=== PATIENT | male | born 1955 | race Caucasian/White ===

== ENCOUNTER 2017-09-29 10:50 | Emergency (ER) | payer MEDICARE, OTHER ==
[2017-09-29] MEDS ORDERED: ONDANSETRON ODT 4 MG TABLET TL STA (11:13)
[2017-09-29] MEDS ORDERED: OXYMETAZOLINE NASAL SPRAY NAS STA (11:13)
[2017-09-29] MEDS ORDERED: MECLIZINE 12.5 MG TABLET PO STA (11:13)
--- NOTE | 2017-09-29 11:18 | ED Physician Documentation ---
History of Present Illness - Stated complaint Stated Complaint: DIZZY/LOSS OF HEARING IN LT EAR - Chief complaint Chief Complaint: Neuro - Additonal information Additional information: hx from pt 62 male recent dental pain where crown has fallen off now ear feels clogged and he is dizzy (vertigo, "sea legs" not ataxia) and nauseated no focal numbness or weakness no vision changes no aphasia or dysarthria Review of Systems Constitutional: denies: Fever, Chills Ears: reports: Ear pain Throat: reports: Dental pain / toothache Respiratory: denies: Cough GI: reports: Nausea, Vomiting Neurologic: reports: Other (dizzy). denies: Focal weakness, Numbness, Difficulty speaking Endocrine: denies: Easy bruising / bleeding Immunocompromised: denies: Immunocompromised PD PAST MEDICAL HISTORY - Present Medications Home Medications: Ambulatory Orders Medication Instructions Recorded Confirmed Clindamycin [Cleocin] 300 mg PO Q6H 7 Days capsule 09/29/17 Lisinopril 10 mg PO DAILY #30 tablet 09/29/17 Meclizine [Antivert] 25 mg PO Q6H PRN #20 tablet 09/29/17 Ondansetron Odt [Zofran] 4 mg TL Q6H PRN #10 tablet 09/29/17 Oxymetazoline HCl [Afrin] 2 spray NS BID PRN #1 bottle 09/29/17 - Allergies Allergies/Adverse Reactions: Allergies Allergy/AdvReac Type Severity Reaction Status Date / Time Sulfa (Sulfonamide Allergy Mild Hives Verified 09/29/17 10:59 Antibiotics) Penicillins AdvReac Severe Anaphylaxis Verified 09/29/17 10:59 PD ED PE NORMAL - Vitals Vital signs reviewed: Yes - General General: Alert and oriented X 3 - HEENT HEENT: PERRL (EOMI no sig nystagmus). No: Ears normal (dull R TM with soerous fluid) - Neck Neck: Supple, no meningeal sign, Other (right lower detal decay with some surrounding erythema but no visible abscess to drain) - Cardiac Cardiac: RRR - Respiratory Respiratory: No respiratory distress, Clear bilaterally - Derm Derm: Normal color - Neuro Neuro: Alert and oriented X 3, whip operator 2-12 intact, No motor deficit, No sensory deficit, Normal speech, Other (nl finger toe) Eye Opening: Spontaneous Motor: Obeys Commands Verbal: Oriented GCS Score: 15 Results - Vitals Vitals: Vital Signs - 24 hr 09/29/17 09/29/17 09/29/17 10:53 12:19 12:40 Temperature 36.4 C L 36.5 C Heart Rate 83 83 77 Respiratory 18 18 18 Rate Blood Pressure 198/109 H 171/130 H 168/107 H O2 Saturation 96 95 96 Oxygen O2 Source Room air PD MEDICAL DECISION MAKING - ED course ED course: hx and exam suggest periph / inner ear vertigo not ataxia / central/ cerebellar sx pt much better with meclizine walked s diff will follow up re BP dc DBP 130 so started lisinopril - Sepsis Event Vital Signs: Vital Signs - 24 hr 09/29/17 09/29/17 09/29/17 10:53 12:19 12:40 Temperature 36.4 C L 36.5 C Heart Rate 83 83 77 Respiratory 18 18 18 Rate Blood Pressure 198/109 H 171/130 H 168/107 H O2 Saturation 96 95 96 Oxygen O2 Source Room air Departure - Departure Disposition: 01 Home, Self Care Clinical Impression: Vertigo, Dental infection Condition: Good Instructions: ED Abscess Dental, ED Vertigo Unspecified, ED Hypertension New Begin Tx Prescriptions: Clindamycin [Cleocin] 300 mg PO Q6H 7 Days capsule Lisinopril 10 mg PO DAILY #30 tablet Meclizine [Antivert] 25 mg PO Q6H PRN #20 tablet PRN Reason: Dizziness Ondansetron Odt [Zofran] 4 mg TL Q6H PRN #10 tablet PRN Reason: Nausea / Vomiting Oxymetazoline HCl [Afrin] 2 spray NS BID PRN #1 bottle PRN Reason: nasal sinus ear congestion Comments: Based on your exam I think the dizziness is due to an inner ear problem and not to a brain problem or stroke Take the medications as prescribed Follow up with your PMD if not better in a few days. Return to the ER if worse or develop other neurologic symptoms such as numbness weakness trouble speaking or loss of vision And please follow up with a dentist about your teeth And your blood pressure was very very high so I have strated you on a blood pressure medication called lisinopril - please follow up with your PMD about your blood pressure
[2017-09-29] MEDS ORDERED: LISINOPRIL 5 MG TABLET PO STA (12:31)
[2017-09-29 12:40] VITALS: BP 168/107
== END 2017-09-29 12:49 | disposition home or self-care (01) ==
LOC: ED 10:50
DX: R42 Dizziness and giddiness (principal); K04.7 Periapical abscess without sinus; R03.0 Elevated blood-pressure reading, without diagnosis of hypertension
CPT/HCPCS: 99283; A9270; Q0162

== ENCOUNTER 2017-10-15 09:40 | Outpatient (CLI) | payer SELFPAY ==
--- NOTE | 2017-10-15 15:23 | XRAY Report ---
Procedure Date: 10/15/2017 Accession Number: [id number] / [id number] Procedure: XR - Chest 2 View X-Ray CPT Code: 45817 FULL RESULT: EXAM: Chest 2 View X-Ray DATE: 10/15/2017 9:50 AM CLINICAL HISTORY: COUGH COMPARISON: CT chest 04/27/2011. TECHNIQUE: 2 views. FINDINGS: Lungs/Pleura: No focal opacities evident. No pneumothorax or pleural effusion. Normal volumes. Mediastinum: Heart and mediastinal contours are unremarkable. Other: None. IMPRESSION: Normal 2-view chest radiography. RADIA
== END 2017-10-15 09:41 | disposition home or self-care (01) ==
LOC: DI 09:40
PROVIDERS: ATTEND Nurse Practitioner Family
DX: R05 Cough (principal)
CPT/HCPCS: 71046

== ENCOUNTER 2020-09-22 15:40 | Emergency (ER) | payer SELFPAY ==
--- NOTE | 2020-09-22 15:44 | ED Physician Documentation ---
PD HPI UPPER EXT INJURY - Stated complaint Stated Complaint: CUT OFF LT THUMB - History obtained from History obtained from: Patient - History of Present Illness Location: Left, Finger (thumb amputation with chop saw at 15:20. Bled brisk for few minutes. Improved with pressure.) Type of injury: Laceration (from chop saw power tool) Where injury occurred: Home, Other (patient is right hand dominant) Timing - onset: Today (just 15-20 minutes [employer]) Timing - details: Abrupt onset, Still present Worsened by: Moving, Palpating Associated symptoms: Other (amputation of thumb just proximal to IP joint.) Similar symptoms before: Has not had sx before Review of Systems Constitutional: denies: Fever, Chills Nose: denies: Rhinorrhea / runny nose, Congestion Throat: denies: Sore throat Respiratory: denies: Cough PD PAST MEDICAL HISTORY - Past Medical History Past Medical History: Yes Cardiovascular: Hypertension Respiratory: None Neuro: None Endocrine/Autoimmune: None GI: Ulcers - Past Surgical History Past Surgical History: No - Present Medications Home Medications: Ambulatory Orders Medication Instructions Recorded Confirmed lisinopriL [Lisinopril] 20 mg PO DAILY 09/22/20 09/22/20 - Allergies Allergies/Adverse Reactions: Allergies Allergy/AdvReac Type Severity Reaction Status Date / Time Sulfa (Sulfonamide Allergy Mild Hives Verified 09/22/20 15:46 Antibiotics) Penicillins AdvReac Severe Anaphylaxis Verified 09/22/20 15:46 - Living Situation Living Arrangement: reports: At home - Social History Does the pt smoke?: No Smoking Status: Former smoker Does the pt drink ETOH?: Yes Does the pt have substance abuse?: No PD ED PE NORMAL - Vitals Vital signs reviewed: Yes - General General: Alert and oriented X 3, Well developed/nourished, Other (appears in pain due to thumb. ) - Derm Derm: Normal color, Warm and dry - Extremities Extremities: Other (The left thumb shows a amputation just proximal to the IP joint. The distal segment is brought on a cool towel moistened. There is no tenderness in the hand.) - Neuro Neuro: Alert and oriented X 3 Results - Vitals Vitals: Vital Signs - 24 hr 09/22/20 15:47 Temperature 36.6 C Heart Rate 100 Respiratory 20 Rate Blood Pressure 122/97 H O2 Saturation 100 Oxygen O2 Source Room air - Labs Labs: Laboratory Tests 09/22/20 09/22/20 16:11 16:11 WBC 9.0 RBC 4.81 Hgb 15.2 Hct 45.5 MCV 94.6 H MCH 31.6 H MCHC 33.4 RDW 13.2 Plt Count 277 MPV 9.2 Neut # (Auto) 5.8 Lymph # (Auto) 2.2 Cecil # (Auto) 0.7 Eos # (Auto) 0.2 Baso # (Auto) 0.1 Absolute Nucleated RBC 0.00 Nucleated RBC % 0.0 Sodium 137 Potassium 4.0 Chloride 101 Carbon Dioxide 25 Anion Gap 11.0 BUN 23 H Creatinine 1.2 Estimated GFR (MDRD) 61 L Glucose 113 H Calcium 9.3 - Rads (name of study) left thumb Radiology: Prelim report reviewed (amputation of the thumb at distal end of proximal phalanx. ), See rad report PD MEDICAL DECISION MAKING - ED course Complexity details: re-evaluated patient (Time was spent calling initially [facility] trauma but they were not replying. [facility] was called promptly after that. The hand surgeon wanted to see pictures of the distal segment in the wound. ), considered differential (The patient has amputation of the thumb. It is cleansed gently and then placed in moist cool gauze. The thumb is anesthetized locally with bupivacaine. It is also cleansed with normal saline.), d/w patient ED course: The patient was given IV fluids pain medicine and antibiotics. He was up-to-date on tetanus already. A fair amount of time elapsed getting pictures of the wound sent to [facility] and initially were not going through by the typical fax. Subsequently the pictures finally did get to there so the hand surgeon could view them. He did feel there was salvageability of the thumb and accepted transfer of the patient. He did ask for it to be in a timely fashion so air transport was recommended. 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
[2020-09-22] MEDS ORDERED: MORPHINE 2 MG/ML CARPUJECT IVP STA ×2 (15:59→17:24)
[2020-09-22] MEDS ORDERED: KETOROLAC 30 MG/ML VIAL IVP STA (16:00)
[2020-09-22] MEDS ORDERED: ceFAZolin 1 GM in SODIUM CHLORIDE 0.9% MINIBAG 100 ML IV STA (16:00)
[2020-09-22 16:33] LABS: BASOPHILS # (AUTO) 0.1 10^3/uL (0.0-0.1); BASOPHILS % (AUTO) 0.6 %; EOSINOPHILS # (AUTO) 0.2 10^3/uL (0.0-0.7); EOSINOPHILS % (AUTO) 2.2 %; HCT - HEMATOCRIT 45.5 % (42.0-52.0); HGB - HEMOGLOBIN 15.2 g/dL (14.0-18.0); LYMPHOCYTES # (AUTO) 2.2 10^3/uL (1.5-3.5); LYMPHOCYTES % (AUTO) 24.1 %; MEAN CORPUSCULAR HEMOGLOBIN 31.6 pg (27.0-31.0); MEAN CORPUSCULAR HGB CONC 33.4 g/dL (32.0-36.0); MEAN CORPUSCULAR VOLUME 94.6 fL (80.0-94.0); MEAN PLATELET VOLUME 9.2 fL (7.4-11.4); MONOCYTES # (AUTO) 0.7 10^3/uL (0.0-1.0); MONOCYTES % (AUTO) 8.2 %; NEUTROPHILS # (AUTO) 5.8 10^3/uL (1.5-6.6); NEUTROPHILS % (AUTO) 64.6 %; PLT - PLATELET COUNT 277 10^3/uL (130-450); RED BLOOD COUNT 4.81 10^6/uL (4.70-6.10); RED CELL DISTRIBUTION WIDTH 13.2 % (12.0-15.0)
--- NOTE | 2020-09-22 16:33 | XRAY Report ---
PROCEDURE: Finger(s) LT INDICATIONS: cut left thumb off at IP joint TECHNIQUE: AP hand, 3 views of the left first finger(s) acquired. COMPARISON: None FINDINGS: Bones: Amputation of the distal aspect of the left first digit is noted. The left first distal phalan ge and head of the left first proximal phalange are absent. Soft tissues: No suspicious soft tissue calcifications. IMPRESSION: Amputation of the left thumb with loss of the left first distal phalange and the distal aspect/head o f the left first proximal phalange. Reviewed by: Krista Jones MD, PhD on 09/22/2020 4:32 PM PDT Approved by: Krista Jones MD, PhD on 09/22/2020 4:32 PM PDT Station ID: [id number]
[2020-09-22 16:34] LABS: CALCIUM 9.3 mg/dL (8.5-10.3); CREATININE 1.2 mg/dL (0.6-1.2)
[2020-09-22] MEDS ORDERED: MORPHINE 10 MG/ML VIAL IVP STA (17:01)
--- NOTE | 2020-09-22 18:45 | XRAY Report ---
PROCEDURE: Finger(s) LT INDICATIONS: please take picture of the amputated segment TECHNIQUE: AP hand, 2 views of the left finger(s) acquired. COMPARISON: None FINDINGS: Bones: Negative first digit is imaged, with comminuted fracturing of the distal aspect of the proxima l phalanx. Possible minimally displaced fracture of the proximal aspect of the distal phalanx of the first digit. Soft tissues: No suspicious soft tissue calcifications. IMPRESSION: First digit amputation and fracture as above. Reviewed by: Talia Lopez MD on 09/22/2020 6:44 PM PDT Approved by: Talia Lopez MD on 09/22/2020 6:44 PM PDT Station ID: [id number]
[2020-09-22 19:42] LABS: CORONAVIRUS 229E-RESP PCR NOT DETECTED; CORONAVIRUS HKU1-RESP PCR NOT DETECTED; CORONAVIRUS NL63-RESP PCR NOT DETECTED
[2020-09-22 19:43] LABS: B. PARAPERTUSSIS- RESP PCR PAN NOT DETECTED; B. PERTUSSIS- RESP PCR PANEL NOT DETECTED; C. PNEUMONIAE- RESP PCR PANEL NOT DETECTED; CORONAVIRUS OC43-RESP PCR NOT DETECTED; HUMAN METAPNEUMOVIRUS NOT DETECTED; INFLUENZA A- RESP PCR PANEL NOT DETECTED; INFLUENZA B - RESP PCR PANEL NOT DETECTED; M. PNEUMONIAE- RESP PCR PANEL NOT DETECTED; PARAINFLUENZA VIRUS 1 NOT DETECTED; PARAINFLUENZA VIRUS 2 NOT DETECTED; PARAINFLUENZA VIRUS 3 NOT DETECTED; PARAINFLUENZA VIRUS 4 NOT DETECTED; RHINOVIRUS/ENTEROVIRUS NOT DETECTED; RSV- RESP PCR PANEL NOT DETECTED; SARS-CoV-2 -RESP PCR PANEL NOT DETECTED
[2020-09-22 20:20] VITALS: BP 161/88
== END 2020-09-22 19:15 | disposition short-term general hospital (02) ==
LOC: ED 15:40
DX: S68.012A Complete traumatic metacarpophalangeal amputation of left thumb, initial encounter (principal); W29.8XXA Contact with other powered hand tools and household machinery, initial encounter; Y92.009 Unspecified place in unspecified non-institutional (private) residence as the place of occurrence of the external cause; Z87.891 Personal history of nicotine dependence; Z20.822 Contact with and (suspected) exposure to COVID-19
CPT/HCPCS: 0202U; 36415; 73140; 80048; 85025; 96365; 96375; 99283; 99285

== ENCOUNTER 2023-10-03 08:00 | Outpatient (CLI) | payer MEDICARE | END 2023-10-03 23:59 | disposition home or self-care (01) | LOC: LAB.S 08:00 | PROVIDERS: ATTEND Registered Nurse | DX: R50.9 Fever, unspecified (principal); R07.0 Pain in throat ==